=== PATIENT | male | born 1995 | race Hispanic/Latino ===

== ENCOUNTER 2017-10-23 20:19 | Emergency (ER) | payer BC, OTHER ==
[2017-10-23 20:23] VITALS: PULSE 89; RESP 18; TEMP 97.4; O2SAT 100
[2017-10-23 20:48] VITALS: BP 121/72
--- NOTE | 2017-10-23 21:17 | ED PDOC ---
HPI: Psych/Substance Abuse Time Seen by Provider: 10/23/17 20:45 Chief Complaint (Nursing): Substance Abuse Chief Complaint (Provider): Substance Abuse History Per: Patient, EMS History/Exam Limitations: no limitations Onset/Duration Of Symptoms: Hrs (prior to arrival) Current Symptoms Are (Timing): Still Present Modifying Factor(s): Alcohol Additional Complaint(s): 22 year old male with no past medical history was brought to the ER by EMS s/p finding him "passed out" in the back of an Uber prior to arrival. Patient is alert and oriented to his surroundings. Patient also reports ingesting alcohol. He offers no other medical complaints at this time. PMD: non-[facility] provider Past Medical History Reviewed: Historical Data, Nursing Documentation, Vital Signs Vital Signs: Last Vital Signs Temp 97.4 F L 10/23/17 20:20 Pulse 89 10/23/17 20:20 Resp 18 10/23/17 20:20 BP 121/72 10/23/17 20:48 Pulse Ox 100 10/23/17 20:20 - Medical History PMH: No Chronic Diseases - Surgical History Surgical History: No Surg Hx - Family History Family History: States: Unknown Family Hx - Immunization History Hx Tetanus Toxoid Vaccination: Yes Hx Influenza Vaccination: No Hx Pneumococcal Vaccination: No - Home Medications Home Medications: Ambulatory Orders Medication Instructions Recorded Famotidine [Pepcid] 20 mg PO DAILY #5 tab 04/06/16 predniSONE [predniSONE Tab] 20 mg PO DAILY #12 tab 04/06/16 - Allergies Allergies/Adverse Reactions: Allergies Allergy/AdvReac Type Severity Reaction Status Date / Time No Known Allergies Allergy Verified 04/06/16 21:31 Review of Systems ROS Statement: Except As Marked, All Systems Reviewed And Found Negative Neurological: Negative for: Confusion ((+) alert) Physical Exam - Reviewed Nursing Documentation Reviewed: Yes Vital Signs Reviewed: Yes - Physical Exam Appears: Positive for: Non-toxic, No Acute Distress Head Exam: Positive for: ATRAUMATIC, NORMAL INSPECTION, NORMOCEPHALIC Skin: Positive for: Normal Color, Warm, Dry Eye Exam: Positive for: Normal appearance Neck: Positive for: Normal, Painless ROM Respiratory: Positive for: Normal Breath Sounds. Negative for: Respiratory Distress Extremity: Positive for: Normal ROM. Negative for: Deformity, Swelling Neurologic/Psych: Positive for: Alert, Oriented, Gait (slightly unsteady) - ECG O2 Sat by Pulse Oximetry: 100 (RA) Pulse Ox Interpretation: Normal Medical Decision Making Medical Decision Making: Time: 21:18 Patient is alert and oriented with his surroundings. He also has a steady gait. Upon provider evaluation patient is medically stable, and requires no further treatment in the ED at this time. Patient will be discharged home. Patient's friend will be coming to pick him up. Scribe Attestation: Documented by Louise Boyer, acting as a scribe for Judi Peng PA-C Provider Scribe Attestation: All medical record entries made by the Scribe were at my direction and personally dictated by me. I have reviewed the chart and agree that the record accurately reflects my personal performance of the history, physical exam, medical decision making, and the department course for this patient. I have also personally directed, reviewed, and agree with the discharge instructions and disposition. Disposition - Clinical Impression Clinical Impression: Alcohol abuse - Patient ED Disposition Is Patient to be Admitted: No - Disposition Disposition: Routine/Home Disposition Time: 21:18 Condition: GOOD
== END 2017-10-23 21:30 | disposition home or self-care (01) ==
LOC: H.ER 20:19
DX: F10.10 Alcohol abuse, uncomplicated (principal)